=== PATIENT | female | born 1995 | race Caucasian/White ===

== ENCOUNTER 2017-05-21 13:31 | Emergency (ER) | payer OTHER ==
[~2017-05-21] VITALS: Ht 162.6 cm; Wt 75.7 kg
[2017-05-21 13:38] VITALS: BP 132/80
--- NOTE | 2017-05-21 13:38 | NUR ---
PT SALBADOR FROM WORK TO ER BED 09. PER REPORT, WITNESSED SYNCOPE, ASSISTED TO THE GROUND. DENIES CHEST PAIN. C/O HEADACHE. PLACED ON MONITOR. NAD NOTED. AWAITING MD HOGUE.
--- NOTE | 2017-05-21 14:06 | NUR ---
Ondina montes in [facility] - 05/21/17 at 1527 by SABRINA GINNY DE LA CRUZ AT BEDSIDE FOR EVAL.
--- NOTE | 2017-05-21 14:06 | NUR ---
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
[2017-05-21] MEDS ORDERED: IV NS 0.9% 250 ML BAG IV ONE (14:30)
[2017-05-21] MEDS ORDERED: METOCLOPRAMIDE HCL 10 MG/2 ML VIAL IV ONE (14:30)
[2017-05-21] MEDS ORDERED: ONDANSETRON HCL/PF 4 MG/2 ML VIAL IVP ONE (14:30)
[2017-05-21] MEDS ORDERED: diphenhydrAMINE HCL 50 MG/ML VIAL IV ONE (14:30)
[2017-05-21] MEDS ORDERED: IV NS 0.9% 1,000 ML BAG IV ONE (14:30)
[2017-05-21 14:32] LABS: BASOPHILS # (AUTO) 0.2 /CMM (0.0-0.2); BASOPHILS % (AUTO) 1.6 % (0.0-2.0); EOSINOPHILS # (AUTO) 0.1 /CMM (0.0-0.7); EOSINOPHILS % (AUTO) 1.2 % (0.0-6.0); HEMATOCRIT 42 % (33-45); LYMPHOCYTES # (AUTO) 2.3 /CMM (0.8-4.8); LYMPHOCYTES % (AUTO) 21.9 % (20.0-44.0); MEAN CORPUSCULAR HEMOGLOBIN 30 PG (26.0-33.0); MEAN CORPUSCULAR HGB CONC 33 g/dl (31.0-36.0); MEAN CORPUSCULAR VOLUME 89 fL (82-100); MONOCYTES # (AUTO) 0.4 /CMM (0.1-1.30); NEUTROPHILS # (AUTO) 7.6 /CMM (1.8-8.9); NEUTROPHILS % (AUTO) 71.3 % (43.0-81.0); PLATELET COUNT (AUTO) 314 /CMM (150-450); RDW COEFFICIENT OF VARIATION 12.2 (11.5-15.0); RED BLOOD CELL COUNT(AUTO) 4.76 MIL/uL (4.0-5.2); WHITE BLOOD COUNT (AUTO) 10.6 K/uL (4.3-11.0)
[2017-05-21 14:34] LABS: APPEARANCE,URINE Clear (CLEAR); BILIRUBIN,URINE Negative (NEGATIVE); BLOOD, URINE Trace-intact Ery/uL (NEGATIVE); COLOR,URINE Yellow (YELLOW); KETONES,URINE Negative (NEGATIVE); LEUKOCYTE ESTERASE ,URINE Negative (NEGATIVE); NITRITE, URINE Negative (NEGATIVE); PROTEIN,URINE Negative (NEGATIVE); UGLUCOSE Negative (NEGATIVE); UROBILINOGEN,URINE 0.2 EU/dL (0.2)
[2017-05-21 14:35] LABS: CREATININE 0.9 mg/dL (0.6-1.3); POTASSIUM 4.1 mmol/L (3.5-5.1)
[2017-05-21 14:36] LABS: BACTERIA,URINE Rare /HPF (None Seen); RBC,URINE 0-2 /HPF (0-2); SQUAMOUS EPITHELIAL CELL,UR Few /HPF (None Seen); WBC,URINE 0-2 /HPF (0-3)
[2017-05-21] MEDS ORDERED: diphenhydrAMINE HCL 50 MG/ML VIAL ONE (14:41)
[2017-05-21] MEDS ORDERED: METOCLOPRAMIDE HCL 10 MG/2 ML VIAL ONE (14:41)
[2017-05-21] MEDS ORDERED: ONDANSETRON HCL/PF 4 MG/2 ML VIAL ONE (14:42)
--- NOTE | 2017-05-21 15:21 | NUR ---
Note tramcarlos in EDM - 05/21/17 at 1528 by SABRINA PT SALBADOR FROM WORK TO ER BED 09. PER REPORT, WITNESSED SYNCOPE, ASSISTED TO THE GROUND. DENIES CHEST PAIN. C/O HEADACHE. PLACED ON MONITOR. NAD NOTED. AWAITING MD HOGUE.
--- NOTE | 2017-05-21 16:07 | NUR ---
IV removed. Catheter intact and site benign. Pressure and 4x4 applied to site. No bleeding noted.Patient discharged to home in stable condition. Written and verbal after care instructions given. Patient verbalizes understanding of instruction.
== END 2017-05-21 16:12 | disposition home or self-care (01) ==
LOC: ER 13:32
DX: G43.909 Migraine, unspecified, not intractable, without status migrainosus (principal); Z91.040 Latex allergy status
CPT/HCPCS: 36415; 80048; 81001; 84703; 85025; 93005; 96361; 96374; 96375; 99285; A4606; J1200; J2405; J2765; J7030; J7050; J7060; 81000-TC; Z7610

== ENCOUNTER 2017-08-27 17:28 | Emergency (ER) | payer OTHER ==
[~2017-08-27] VITALS: Ht 162.6 cm; Wt 75.7 kg
--- NOTE | 2017-08-27 17:40 | NUR ---
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 VSS. DENIES FEVER, N/V. SEEN BY PA FOR EVAL. SAFETY AND COMFORT MEASURES PROVIDED. WILL MONITOR.
--- NOTE | 2017-08-27 17:45 | NUR ---
AMANDA AT BS.
--- NOTE | 2017-08-27 18:22 | NUR ---
Patient discharged to home in stable condition. Written and verbal after care instructions given. Patient verbalizes understanding of instruction.
[2017-08-27 18:23] VITALS: BP 144/78
== END 2017-08-27 18:25 | disposition home or self-care (01) ==
LOC: ER 17:29
DX: J06.9 Acute upper respiratory infection, unspecified (principal); M79.1 Myalgia; Z91.040 Latex allergy status
CPT/HCPCS: 71010; 82962; 99283; A4606; Z7610